=== PATIENT | male | born 1935 | race Caucasian/White ===

== ENCOUNTER 2016-08-02 16:27 | Inpatient (IN) | payer OTHER ==
[~2016-08-02] VITALS: Ht 188 cm; Wt 69.4 kg
[2016-08-02 16:59] LABS: HEMATOCRIT 35.8 % (38.0-50.0); MCH 30.8 PG (29.0-34.0); MCHC 33.2 G/DL (30.0-36.0); MCV 92.7 FL (86-99); PLATELET COUNT 172 K/uL (156-360); RBC DIS.WIDTH-CV 13.3 % (11.8-14.6); RBC DIS.WIDTH-SD 45.3 % (39-53); RED BLOOD COUNT 3.86 M/uL (4.00-5.50); WHITE BLOOD COUNT 5.7 K/uL (4.1-10.2)
[2016-08-02 17:07] LABS: CHLORIDE 109 mEq/L (99-109); INTER. NORMALIZED RATIO 1.1; POTASSIUM 4.1 mEq/L (3.7-5.4); PROTHROMBIN TIME 11.4 (9.2-11.2); PTT 29.6 (25-32); SODIUM 146 mEq/L (136-147)
[2016-08-02 17:08] LABS: GLUCOSE 90 mg/dL (70-99)
[2016-08-02 17:10] LABS: ANION GAP 10 MEQ/L (2-14)
[2016-08-02 17:12] LABS: GFR ESTIMATE (CALCULATED) > 59 mL/min/
[2016-08-02 17:13] LABS: UREA NITROGEN (BUN) 19 mg/dL (9-23)
[2016-08-02 17:18] LABS: TROP-I INTERPRETATION NEGATIVE; TROPONIN-I < 0.01 ng/mL (0.0-0.30)
[2016-08-02] MEDS ORDERED: SYNTHROID50 MCG PO (18:11)
[2016-08-02] MEDS ORDERED: DEPAKOTE SPRIN125 MG PO ×2 (18:11)
[2016-08-02] MEDS ORDERED: NAMENDA XR28 MG PO (18:12)
[2016-08-02] MEDS ORDERED: SEROQUEL12.5 MG PO (18:12)
[2016-08-02] MEDS ORDERED: SEROQUEL50 MG PO (18:12)
[2016-08-02] MEDS ORDERED: NORVASC5 MG PO (18:12)
[2016-08-02] MEDS ORDERED: VITAMIN D31000 UNI2 PO (18:13)
[2016-08-02] MEDS ORDERED: ASPIRIN325 MG PO (18:13)
[2016-08-02] MEDS ORDERED: DONEPEZIL HCL10 MG PO (18:13)
[2016-08-02] MEDS ORDERED: FOSAMAX70 MG PO (18:13)
[2016-08-02] MEDS ORDERED: XALATAN2.5 ML BOTH EYES (18:14)
[2016-08-02] MEDS ORDERED: DAILY VITE1 EAC1 PO (18:15)
[2016-08-02] MEDS ORDERED: VITAMIN D31000 UNIT PO (18:49)
[2016-08-02] MEDS ORDERED: ACETAMINOPHEN325 M1 PO (18:51)
[2016-08-02] MEDS ORDERED: REMERON15 M2 PO (18:51)
[2016-08-02] MEDS ORDERED: COLACE10 MG/ML PO (18:52)
[2016-08-02 20:44] LABS: HDL CHOLESTEROL 46 MG/DL (Desirable>=40); LDL CHOLESTEROL 100 mg/dL (Desirable<100); NON-HDL CHOLESTEROL 117 mg/dL (Desirable<160); SAMPLE HEMOLYSIS CHECK 0; SAMPLE ICTERIC CHECK 0; SAMPLE LIPEMIA CHECK 0; TOTAL CHOLESTEROL 163 mg/dL (Desirable<200); TRIGLYCERIDES 84 MG/DL (Normal: <150)
[2016-08-02 20:48] LABS: DIRECT BILIRUBIN 0.2 mg/dL (0.0-0.3); TOTAL BILIRUBIN 0.9 MG/DL (0.0-1.0)
[2016-08-02 20:54] LABS: ALKALINE PHOSPHATASE 49 IU/L (3-129)
[2016-08-03 03:25] VITALS: BP 136/65
[2016-08-03 06:33] LABS: Estimated Average Glucose 100 mg/dL (70-123); HEMOGLOBIN A1c (GLYCOHEMOGLOB) 5.1 % HGB (Below 5.7)
[2016-08-03 07:26] VITALS: BP 110/52
[2016-08-03 11:04] VITALS: BP 106/78
[2016-08-03 15:10] VITALS: BP 117/57
[2016-08-03 19:49] VITALS: BP 151/68
[2016-08-03 23:34] VITALS: BP 167/70
[2016-08-04 04:15] VITALS: BP 141/84
[2016-08-04 05:37] LABS: EOSINOPHIL (%) 5.4 % (0-5); EOSINOPHIL COUNT 0.3 K/uL (0-0.3); HEMATOCRIT 34.7 % (38.0-50.0); IMMATURE GRANULOCYTE (%) 0.4 % (0.0-0.7); INSTRUMENT ABS NEUTROPHIL CT 3.3 K/uL; LYMPHOCYTE COUNT 1.5 K/uL (1.0-2.8); MCH 31.5 PG (29.0-34.0); MCV 92.5 FL (86-99); MEAN PLAT.VOLUME 8.8 uM^3 (9.0-12.4); MONOCYTE (%) 9.1 % (3-12); MONOCYTE COUNT 0.5 K/uL (0-0.8); NEUTROPHIL (%) 58.6 % (45-76); NEUTROPHIL COUNT 3.3 K/uL (1.8-6.4); PLATELET COUNT 174 K/uL (156-360); RBC DIS.WIDTH-CV 13.1 % (11.8-14.6); RBC DIS.WIDTH-SD 44.3 % (39-53); RED BLOOD COUNT 3.75 M/uL (4.00-5.50); WHITE BLOOD COUNT 5.7 K/uL (4.1-10.2)
[2016-08-04 06:27] LABS: ANION GAP 7 MEQ/L (2-14); CHLORIDE 108 MEQ/L (99-109); GFR ESTIMATE (CALCULATED) > 59 mL/min/; GLUCOSE 83 mg/dL (70-99); POTASSIUM 3.5 MEQ/L (3.7-5.4); SAMPLE HEMOLYSIS CHECK 0; SAMPLE ICTERIC CHECK 0; SAMPLE LIPEMIA CHECK 0; SODIUM 146 MEQ/L (136-147); UREA NITROGEN (BUN) 19 mg/dL (9-23)
[2016-08-04 07:42] VITALS: BP 131/71
[2016-08-04 10:16] LABS: ADD MIUA? YES; BILIRUBIN NEGATIVE; BLOOD SMALL; COLOR YELLOW ((YELLOW)); GLUCOSE (STRIP) NEGATIVE; KETONES 20; LEUKOCYTES NEGATIVE; NITRITE NEGATIVE; PROTEIN (STRIP) NEGATIVE; SPECIFIC GRAVITY 1.015 (1.000-1.030)
[2016-08-04 10:56] LABS: BACTERIA RARE /HPF; EPITHELIAL CELLS RARE /HPF; HYALINE CASTS 0-5 /LPF; MUCUS TRACE /LPF; RED BLOOD CELLS 20-30 /HPF (0-5); UCUL ADDED? NO; WHITE BLOOD CELLS 0-5 /HPF (0-5)
[2016-08-04 11:09] VITALS: BP 132/71
[2016-08-04 15:08] VITALS: BP 116/55
[2016-08-04 19:58] VITALS: BP 120/59
[2016-08-04 23:38] VITALS: BP 156/72
[2016-08-05 05:57] LABS: EOSINOPHIL (%) 5.9 % (0-5); EOSINOPHIL COUNT 0.4 K/uL (0-0.3); HEMATOCRIT 35.5 % (38.0-50.0); IMMATURE GRANULOCYTE (%) 0.2 % (0.0-0.7); INSTRUMENT ABS NEUTROPHIL CT 3.2 K/uL; LYMPHOCYTE COUNT 1.8 K/uL (1.0-2.8); MCH 30.7 PG (29.0-34.0); MCHC 33.2 G/DL (30.0-36.0); MCV 92.4 FL (86-99); MEAN PLAT.VOLUME 9.1 uM^3 (9.0-12.4); MONOCYTE (%) 9.4 % (3-12); MONOCYTE COUNT 0.6 K/uL (0-0.8); NEUTROPHIL (%) 53.7 % (45-76); NEUTROPHIL COUNT 3.2 K/uL (1.8-6.4); PLATELET COUNT 181 K/uL (156-360); RBC DIS.WIDTH-CV 13.2 % (11.8-14.6); RBC DIS.WIDTH-SD 44.2 % (39-53); RED BLOOD COUNT 3.84 M/uL (4.00-5.50)
[2016-08-05 07:28] LABS: ALKALINE PHOSPHATASE 48 IU/L (3-129); ANION GAP 7 MEQ/L (2-14); CHLORIDE 108 MEQ/L (99-109); DIRECT BILIRUBIN 0.1 mg/dL (0.0-0.3); GFR ESTIMATE (CALCULATED) > 59 mL/min/; GLUCOSE 86 mg/dL (70-99); POTASSIUM 3.9 MEQ/L (3.7-5.4); SAMPLE HEMOLYSIS CHECK 0; SAMPLE ICTERIC CHECK 0; SAMPLE LIPEMIA CHECK 0; SODIUM 147 MEQ/L (136-147); UREA NITROGEN (BUN) 20 mg/dL (9-23)
[2016-08-05 07:30] VITALS: BP 156/69
[2016-08-05 07:31] LABS: TOTAL BILIRUBIN 0.6 MG/DL (0.0-1.0)
[2016-08-05 15:58] VITALS: BP 114/57
[2016-08-06 00:04] VITALS: BP 130/81
[2016-08-06 06:39] LABS: EOSINOPHIL (%) 6.8 % (0-5); EOSINOPHIL COUNT 0.4 K/uL (0-0.3); HEMATOCRIT 36.4 % (38.0-50.0); IMMATURE GRANULOCYTE (%) 0.3 % (0.0-0.7); INSTRUMENT ABS NEUTROPHIL CT 3.4 K/uL; LYMPHOCYTE COUNT 1.7 K/uL (1.0-2.8); MCH 31.6 PG (29.0-34.0); MCHC 34.1 G/DL (30.0-36.0); MCV 92.9 FL (86-99); MEAN PLAT.VOLUME 9.1 uM^3 (9.0-12.4); MONOCYTE (%) 7.6 % (3-12); MONOCYTE COUNT 0.5 K/uL (0-0.8); NEUTROPHIL (%) 56.4 % (45-76); NEUTROPHIL COUNT 3.4 K/uL (1.8-6.4); PLATELET COUNT 181 K/uL (156-360); RBC DIS.WIDTH-CV 13.2 % (11.8-14.6); RBC DIS.WIDTH-SD 44.6 % (39-53); RED BLOOD COUNT 3.92 M/uL (4.00-5.50)
[2016-08-06 07:37] VITALS: BP 123/65
[2016-08-06 07:53] LABS: ANION GAP 8 MEQ/L (2-14); CHLORIDE 106 MEQ/L (99-109); GFR ESTIMATE (CALCULATED) > 59 mL/min/; GLUCOSE 88 mg/dL (70-99); POTASSIUM 3.9 MEQ/L (3.7-5.4); SAMPLE HEMOLYSIS CHECK 0; SAMPLE ICTERIC CHECK 0; SAMPLE LIPEMIA CHECK 0; SODIUM 145 MEQ/L (136-147); UREA NITROGEN (BUN) 21 mg/dL (9-23)
[2016-08-06 15:12] VITALS: BP 137/65
[2016-08-06 23:43] VITALS: BP 129/69
[2016-08-07 07:30] VITALS: BP 163/72
[2016-08-07] MEDS ORDERED: PRAVASTATIN SOD40 MG PO (12:29)
[2016-08-07 15:20] VITALS: BP 96/56
[2016-08-08] VITALS: BP 161/63
[2016-08-08 07:28] VITALS: BP 138/59
== END 2016-08-08 16:22 | DRG 71 ==
LOC: EME → EDBD 16:27 → EME 16:27 → 5SOUTH 19:39 → EDOF 19:39 → 5SOUTH 21:15
PROVIDERS: Emergency Medicine; Hospitalist; Internal Medicine
DX: G93.40 Encephalopathy, unspecified (principal); E72.20 Disorder of urea cycle metabolism, unspecified; T42.6X5A Adverse effect of other antiepileptic and sedative-hypnotic drugs, initial encounter; E87.6 Hypokalemia; G30.9 Alzheimer's disease, unspecified; F02.80 Dementia in other diseases classified elsewhere, unspecified severity, without behavioral disturbance, psychotic disturbance, mood disturbance, and anxiety; I10 Essential (primary) hypertension; M19.90 Unspecified osteoarthritis, unspecified site; M81.0 Age-related osteoporosis without current pathological fracture; E03.9 Hypothyroidism, unspecified; Z66 Do not resuscitate; Z51.5 Encounter for palliative care; Z87.891 Personal history of nicotine dependence; Z79.82 Long term (current) use of aspirin
CPT/HCPCS: 70450; 70551; 71010; 80048; 80061; 80076; 81003; 82140; 83036; 84443; 84484; 85025; 85027; 85610; 85730; 92523 GN; 93005; 93880; 97530 GP; 99281; 99285; J1644